=== PATIENT | female | born 1940 | race Caucasian/White ===

== ENCOUNTER 2017-03-14 21:27 | Emergency (ER) | payer OTHER ==
[~2017-03-14 21:27] MED LIST: ACYCLOVIR400 MG PO; AMBIEN10 MG PO; AMLODIPINE BESYL5 M1 PO; BENADRYL ALLERG25 M1 PO; LANTUS SOLOS100 U/M1 SQ; LEVOTHYROXIN0.125 M2 PO; LUMIGAN2.5 M1 OU; MEDDP PO; METFORMIN HCL500 MG PO; MOBIC15 MG PO; Q PAP PO; SIMVASTATIN20 M1 PO; VITAMIN D32000 I2 PO
[2017-03-15 00:01] VITALS: BP 146/80
== END 2017-03-15 00:01 | disposition home or self-care (01) ==
LOC: ED 21:27
DX: Z76.0 Encounter for issue of repeat prescription (principal); E11.65 Type 2 diabetes mellitus with hyperglycemia; I10 Essential (primary) hypertension; G51.0 Bell's palsy
CPT/HCPCS: 82962; J1815

== ENCOUNTER 2017-10-14 19:04 | Emergency (ER) | payer OTHER ==
[~2017-10-14] VITALS: Ht 160 cm; Wt 90.7 kg
[2017-10-14 19:39] VITALS: Ht 160 cm; Wt 90.7 kg
[2017-10-14 21:10] LABS: microscopic required? NO
[2017-10-14 21:30] LABS: UA SPECIFIC GRAVITY >=1.030 (1.005-1.035); urine erythrocyte NEGATIVE (NEGATIVE)
[2017-10-14 21:32] LABS: BASOPHIL % 1.4 % (0-2); PLATELET COUNT 155 x10^3mcL (130-400)
[2017-10-14 21:33] LABS: RED CELL DISTRIBUTION WIDTH 17.6 % (11.5-14.5)
[2017-10-14 21:44] LABS: CALCIUM 8.6 mg/dL (8.5-10.1); CARBON DIOXIDE 25.5 mmol/L (21-32); CHLORIDE SERUM 106 mmol/L (98-107); GLUCOSE SERUM 181 mg/dL (74-106); SODIUM SERUM 139 mmol/L (136-145)
[2017-10-14 21:48] LABS: ALKALINE PHOSPHATASE 181 U/L (46-116); ALT/SGPT 42 U/L (14-59); AST/SGOT 50 U/L (15-37); BILIRUBIN TOTAL 0.5 mg/dL (0.20-1.00); LIPASE 136 IU/L (73-393); TOTAL PROTEIN, SERUM 6.9 g/dL (6.4-8.2)
[2017-10-14 21:49] LABS: ALBUMIN 2.7 g/dL (3.4-5.0)
[2017-10-14 23:30] LABS: T3 TOTAL 1.04 ng/mL
[2017-10-14 23:55] LABS: FREE T4 1.52 ng/dL (0.76-1.46); FREE THYROXINE INDEX 3.8 ug/dL (1.4-4.5); T4(THYROXINE) 11.3 ug/dL (4.7-13.3)
[2017-10-15 01:10] VITALS: BP 147/76
== END 2017-10-15 01:10 | disposition home or self-care (01) ==
LOC: ED 19:04
PROVIDERS: Emergency Medicine
DX: K74.60 Unspecified cirrhosis of liver (principal); R60.0 Localized edema; I10 Essential (primary) hypertension; E11.9 Type 2 diabetes mellitus without complications; E78.00 Pure hypercholesterolemia, unspecified
CPT/HCPCS: 83880; 84439; J1200; Q0092; Q9967

== ENCOUNTER 2018-01-23 22:59 | Emergency (ER) | payer OTHER ==
[~2018-01-23] VITALS: Ht 154.9 cm; Wt 81.2 kg
[2018-01-23 23:00] VITALS: Ht 154.9 cm; Wt 81.2 kg
[2018-01-24 01:13] LABS: PLATELET COUNT 151 x10^3mcL (130-400); RED CELL DISTRIBUTION WIDTH 19.7 % (11.5-14.5)
[2018-01-24 01:24] LABS: CALCIUM 9.1 mg/dL (8.5-10.1); CARBON DIOXIDE 26.6 mmol/L (21-32); CHLORIDE SERUM 97 mmol/L (98-107); CREATININE SERUM 1.5 mg/dL (0.6-1.0); GLUCOSE SERUM 217 mg/dL (74-106); POTASSIUM SERUM 3.7 mmol/L (3.5-5.1); SODIUM SERUM 132 mmol/L (136-145)
[2018-01-24 01:33] LABS: T3 TOTAL 0.65 ng/mL
[2018-01-24 01:34] LABS: ALBUMIN 3.1 g/dL (3.4-5.0); ALKALINE PHOSPHATASE 200 U/L (46-116); ALT/SGPT 73 U/L (14-59); AST/SGOT 59 U/L (15-37); BILIRUBIN TOTAL 0.73 mg/dL (0.20-1.00); CHOLESTEROL 174 mg/dL (<200); CHOLESTEROL/HDL RATIO 2.8; HDL CHOLESTEROL 63 mg/dL (40-60); LIPASE 240 IU/L (73-393); TOTAL PROTEIN, SERUM 8.4 g/dL (6.4-8.2); TRIGLYCERIDES 86 mg/dL (<150)
[2018-01-24 01:59] LABS: FREE T4 0.98 ng/dL (0.76-1.46); FREE THYROXINE INDEX 2.9 ug/dL (1.4-4.5); T4(THYROXINE) 9.3 ug/dL (4.7-13.3)
[2018-01-24 02:14] VITALS: BP 133/80
[2018-01-24 04:49] LABS: microscopic required? NO
[2018-01-24 04:56] LABS: urine erythrocyte NEGATIVE (NEGATIVE)
== END 2018-01-24 02:14 | disposition home or self-care (01) ==
LOC: ED 22:59
PROVIDERS: Specialist
DX: K80.42 Calculus of bile duct with acute cholecystitis without obstruction (principal); K74.60 Unspecified cirrhosis of liver; I10 Essential (primary) hypertension; E11.9 Type 2 diabetes mellitus without complications; E78.00 Pure hypercholesterolemia, unspecified; Z98.890 Other specified postprocedural states
CPT/HCPCS: 36600; 82962; 83880; 84439; J2405; J3010; Q0092

== ENCOUNTER 2018-06-17 20:50 | Emergency (ER) | payer OTHER ==
[~2018-06-17] VITALS: Ht 157.5 cm; Wt 81.6 kg
[2018-06-17 21:03] VITALS: Ht 157.5 cm; Wt 81.6 kg
[2018-06-17 22:57] VITALS: BP 130/93
== END 2018-06-17 22:47 | disposition home or self-care (01) ==
LOC: ED 20:50
DX: E11.649 Type 2 diabetes mellitus with hypoglycemia without coma (principal); I10 Essential (primary) hypertension; E78.00 Pure hypercholesterolemia, unspecified; Z98.890 Other specified postprocedural states
CPT/HCPCS: 82962

== ENCOUNTER 2019-05-24 22:45 | Emergency (ER) | payer OTHER ==
[~2019-05-24] VITALS: Ht 162.6 cm; Wt 87.5 kg
[2019-05-24 22:52] VITALS: Ht 162.6 cm; Wt 87.5 kg
[2019-05-24 23:49] LABS: BASOPHIL % 1.2 % (0-2); PLATELET COUNT 132 x10^3mcL (130-400); RED CELL DISTRIBUTION WIDTH 16.7 % (11.5-14.5)
[2019-05-25 00:33] LABS: CARBON DIOXIDE 27.4 mmol/L (21-32); CHLORIDE SERUM 102 mmol/L (98-107); POTASSIUM SERUM 3.8 mmol/L (3.5-5.1); SODIUM SERUM 138 mmol/L (136-145)
[2019-05-25 00:34] LABS: CREATININE SERUM 1.5 mg/dL (0.6-1.0); GLUCOSE SERUM 241 mg/dL (74-106)
[2019-05-25 00:35] LABS: ALBUMIN 2.6 g/dL (3.4-5.0); CALCIUM 8.8 mg/dL (8.5-10.1); TOTAL PROTEIN, SERUM 7.1 g/dL (6.4-8.2)
[2019-05-25 00:36] LABS: ALKALINE PHOSPHATASE 245 U/L (46-116); ALT/SGPT 53 U/L (14-59); AST/SGOT 59 U/L (15-37); CHOLESTEROL 107 mg/dL (<200); HDL CHOLESTEROL 36 mg/dL (40-60)
[2019-05-25 02:33] VITALS: BP 137/55
== END 2019-05-25 02:33 | disposition home or self-care (01) ==
LOC: ED 22:45
PROVIDERS: Emergency Medicine
DX: J06.9 Acute upper respiratory infection, unspecified (principal); E11.65 Type 2 diabetes mellitus with hyperglycemia; I10 Essential (primary) hypertension; E11.9 Type 2 diabetes mellitus without complications; E78.00 Pure hypercholesterolemia, unspecified; Z98.890 Other specified postprocedural states
CPT/HCPCS: 36415; 82962; 83880; Q0092